=== PATIENT | female | born 1960 | race Two or more races ===

== ENCOUNTER → 2020-02-09 | Outpatient (CLI) | payer BC, OTHER ==
[~2020-02-09] MED LIST: BP Med PO; METF500T17 PO; [UNRECOGNIZED DRUG - OTHER] PO
[2020-02-09 09:36] LABS: BASOPHILS % (AUTO) 1 % (0-1); EOSINOPHILS % (AUTO) 3 % (1-7); LYMPHOCYTES % (AUTO) 35 % (22-44); MEAN CORPUSCULAR HEMOGLOBIN 30.4 pg (27.0-34.8); MEAN CORPUSCULAR HGB CONC 33.2 g/dL (32.4-35.8); MEAN PLATELET VOLUME 7.9 fL (7.4-10.4); MONOCYTES % (AUTO) 9 % (2-9); NEUTROPHILS % (AUTO) 53 % (42-75); PLATELET COUNT 290 x10^3/uL (130-400); RED BLOOD COUNT 4.11 x10^6/uL (3.82-5.3); RED CELL DISTRIBUTION WIDTH 14.7 % (9.6-15.2)
[2020-02-09 09:41] LABS: INTERNATIONAL NORMALIZED RATIO 0.97 (0.93-1.1); PROTHROMBIN TIME 10.3 Seconds (9.6-11.5)
[2020-02-09 09:42] LABS: ALANINE AMINOTRANSFERASE 20 U/L (12-78); ALBUMIN 3.7 g/dL (3.4-5.0); ANION GAP 2 mmol/L (5-15); CALCIUM 8.8 mg/dL (8.5-10.1); CHLORIDE 112 mmol/L (98-107); CREATININE 0.77 mg/dL (0.55-1.02)
[2020-02-09 09:44] LABS: ALKALINE PHOSPHATASE 68 U/L (45-117); BILIRUBIN,TOTAL 0.4 mg/dL (0.2-1.0); TOTAL PROTEIN 7.2 g/dL (6.4-8.2)
[2020-02-09 09:46] LABS: MD NO
== END | disposition home or self-care (01) ==
LOC: STAR 08:11
PROVIDERS: ATTEND Orthopaedic Surgery
DX: Z01.812 Encounter for preprocedural laboratory examination (principal); Z20.828 Contact with and (suspected) exposure to other viral communicable diseases; M17.12 Unilateral primary osteoarthritis, left knee; Z79.01 Long term (current) use of anticoagulants
CPT/HCPCS: 36415; 80053; 83036; 85025; 85610; 85730; 87081; 87635; 93005

== ENCOUNTER 2020-02-15 05:15 | Day surgery (SDC) | payer BC, OTHER ==
[~2020-02-15] VITALS: Ht 157.5 cm; Wt 83.7 kg
[2020-02-15] MEDS ORDERED: INDO50CA15 PO (05:57)
[2020-02-15] MEDS ORDERED: ENAL5TAB10 PO (05:57)
[2020-02-15] MEDS ORDERED: MELO15TA24 PO (05:57)
[2020-02-15 06:00] VITALS: BP 146/74
[2020-02-15] MEDS ORDERED: CHLORHEXIDINE 15 ML UDC MM ONE (06:00)
[2020-02-15] MEDS ORDERED: LACTATED RINGERS 1,000 ML IV SCH (06:00)
[2020-02-15] MEDS ORDERED: ACETAMINOPHEN 500 MG TABLET PO ONE (06:00)
[2020-02-15] MEDS ORDERED: GABAPENTIN 300 MG CAPSULE PO ONE (06:00)
[2020-02-15] MEDS ORDERED: MIDAZOLAM 1 MG/ML, 2ML ONE (06:14)
[2020-02-15] MEDS ORDERED: FENTANYL PF 250 MCG/5ML ONE (06:14)
[2020-02-15] MEDS ORDERED: ROPIvacaine/PF 0.5%, 30 ML ONE (06:18)
[2020-02-15] MEDS ORDERED: VANCOMYCIN 1,000 MG ONE (06:18)
[2020-02-15] MEDS ORDERED: TRANEXAMIC ACID 100 MG/ML, 10ML ONE ×2 (06:18)
[2020-02-15] MEDS ORDERED: KETOROLAC 60 MG/2 ML ONE (06:18)
[2020-02-15] MEDS ORDERED: SODIUM CHLORIDE 0.9% 50 ML ONE (06:18)
[2020-02-15] MEDS ORDERED: EPINEPHRINE 1 MG/ML, 1ML ONE (06:19)
[2020-02-15] MEDS ORDERED: ROPIvacaine/PF 0.5%, 20 ML ONE (06:19)
[2020-02-15] MEDS ORDERED: SENNA/DOCUSATE TABLET PO PRN (07:00)
[2020-02-15] MEDS ORDERED: OXYcodone IR 5MG TABLET PO PRN (07:00)
[2020-02-15] MEDS ORDERED: ONDANSETRON 4 MG TABLET PO PRN (07:00)
[2020-02-15] MEDS ORDERED: ACETAMINOPHEN 650 MG/20.3 ML UDC PO PRN (07:00)
[2020-02-15] MEDS ORDERED: MAGNESIUM HYDROXIDE 8%, 30ML UDC PO PRN (07:00)
[2020-02-15] MEDS ORDERED: BISACODYL 10 MG SUPP PR PRN (07:00)
[2020-02-15] MEDS ORDERED: ONDANSETRON 2MG/ML, 2ML IV PRN (07:00)
[2020-02-15] MEDS ORDERED: HYDROmorphone 1 MG/ML, 1ML INJ IV PRN (07:00)
[2020-02-15] MEDS ORDERED: CEFAZOLIN PMX 2GM/50ML 50 ML IVPB SCH (07:00)
[2020-02-15] MEDS ORDERED: ZOLPIDEM 5MG TABLET PO PRN (07:00)
[2020-02-15] MEDS ORDERED: NS + 20MEQ KCL 1,000 ML IV SCH (07:00)
[2020-02-15] MEDS ORDERED: DIPHENHYDRAMINE 50 MG CAPSULE PO PRN (07:00)
[2020-02-15] MEDS ORDERED: HYDROcodone/APAP 5/325 TABLET PO PRN (07:00)
[2020-02-15] MEDS ORDERED: NEOSTIGMINE 1 MG/ML, 10ML ONE (07:06)
[2020-02-15] MEDS ORDERED: GLYCOPYRROLATE 0.2MG/1ML, 5ML ONE (07:06)
[2020-02-15] MEDS ORDERED: PROPOFOL 10 MG/ML, 20ML ONE (07:06)
[2020-02-15] MEDS ORDERED: ROCURONIUM 10MG/ML,5ML ONE (07:06)
[2020-02-15] MEDS ORDERED: ONDANSETRON 2MG/ML, 2ML ONE (07:06)
[2020-02-15] MEDS ORDERED: CEFAZOLIN 1,000 MG ONE (07:06)
[2020-02-15] MEDS ORDERED: SUCCINYLCHOLINE 20 MG/ML, 10ML ONE (07:06)
[2020-02-15] MEDS ORDERED: DIAZEPAM 5 MG/ML, 2ML IVPush PRN (07:30)
[2020-02-15] MEDS ORDERED: ALBUTEROL SULFATE 2.5 MG/3 ML NPPB PRN (07:30)
[2020-02-15] MEDS ORDERED: PROMETHAZINE 25 MG/ML, 1ML IV PRN (07:30)
[2020-02-15] MEDS ORDERED: hydrALAzine 20 MG/ML, 1ML IV PRN (07:30)
[2020-02-15] MEDS ORDERED: HYDROmorphone 2 MG/ML, 1ML IVPush PRN (07:30)
[2020-02-15] MEDS ORDERED: OXYcodone 5 MG/5 ML ORAL.SOL UDC PO PRN (07:30)
[2020-02-15] MEDS ORDERED: MEPERIDINE/PF 25MG/0.5ML IVPush PRN (07:30)
[2020-02-15] MEDS ORDERED: ACETAMINOPHEN 325 MG TABLET PO PRN (07:30)
[2020-02-15] MEDS ORDERED: LABETALOL 5MG/ML, 20ML IV PRN (07:30)
[2020-02-15] MEDS ORDERED: FENTANYL PF 100 MCG/2ML ONE (08:10)
[2020-02-15] MEDS ORDERED: OXYcodone 5 MG/5 ML ORAL.SOL UDC ONE (08:10)
[2020-02-15] MEDS: FENTANYL PF 100 MCG/2ML IV PRN ×4 (08:14→08:45)
[2020-02-15] MEDS ORDERED: ENALAPRIL 5MG TABLET PO SCH (09:00)
[2020-02-15] MEDS ORDERED: metFORMIN 500 MG TABLET PO SCH (09:00)
[2020-02-15] MEDS ORDERED: DOCUSATE 100 MG CAPSULE PO SCH (09:00)
[2020-02-15] MEDS ORDERED: ASPIRIN 81 MG TABLET EC PO SCH (18:00)
[2020-02-16] MEDS ORDERED: DEXAMETHASONE 4 MG/ML, 1ML IVPush SCH (06:00)
== END 2020-02-15 13:15 | disposition home or self-care (01) ==
LOC: OUT 05:15
PROVIDERS: ATTEND Orthopaedic Surgery
DX: M17.0 Bilateral primary osteoarthritis of knee (principal); M25.762 Osteophyte, left knee; I10 Essential (primary) hypertension; E11.9 Type 2 diabetes mellitus without complications; G89.18 Other acute postprocedural pain; Z79.1 Long term (current) use of non-steroidal anti-inflammatories (NSAID); Z79.84 Long term (current) use of oral hypoglycemic drugs; Z79.899 Other long term (current) drug therapy
CPT/HCPCS: 27447; 64447; 82962; 97110; 97161; 97165; C1713; C1776; J0171; J0330; J0690; J1885; J2250; J2405; J2704; J2710; J2795; J3010; J3370; J7120